=== PATIENT | male | born 1985 | race Caucasian/White ===

== ENCOUNTER 2020-02-23 09:43 | Emergency (ER) | payer OTHER, SELFPAY ==
[2018-03-06 09:10] VITALS: BMI 28.4
[2020-02-23 09:44] VITALS: BP 147/93; PULSE 79; RESP 17; TEMP 36.3; O2SAT 97; BMI 30.4
--- NOTE | 2020-02-23 09:53 | ED.DCSUM_ITS ---
History of Present Illness Informant: Patient Occurred: Yesterday Mechanism/Context: Incised Onset: Yesterday Context: Sudden Onset Timing: Continuous Quality of Pain: Burning Location: Right thumb Current Severity: Mild Maximum Severity: Mild Worsened by: Movement Relieved by: Rest Associated Symptoms: Negative for: Parasthesia, Weakness, Loss of Funtion Narrative: 34-year-old axefj-drro-cnyhynst male presents with a laceration to his right thumb. This occurred yesterday while he was using his pocket knife. He states that he has been unable to get the bleeding to completely resolved. He denies any significant pain. He denies numbness tingling or weakness. He denies any other injuries. He is not on blood thinners. He is unsure about his tetanus. Tetanus Immunization: Unknown Prior similar symptoms: No Recent Illness/Hospitalization: No <Ole Almaguer - Last Filed: 02/23/20 10:28> <Jona Carvalho - Last Filed: 02/23/20 10:37> Chief Complaint: Laceration Past Medical History Prior records reviewed: Yes Past Medical History: None Surgical History: no surgical history Lives: With Family Smoking Status: Current every day smoker Alcohol: Occasional Drugs: None <Ole Almaguer - Last Filed: 02/23/20 10:28> <Jona Carvalho - Last Filed: 02/23/20 10:37> - Allergies and Home Meds Allergies/Adverse Reactions: Allergies No Known Allergies Allergy (Unverified 02/23/20 09:44) Primary Care Physician: Jake Khan DO [Primary Care Provider] - Review of Systems All systems negative except as indicated General: Denies: Chills, Fever, Sweats Eyes: Denies: Visual changes - bilaterally, Diplopia ENT: Denies: Rhinorrhea, Sore throat Cardiovascular: Denies: Chest pain, Palpitations Respiratory: Denies: Dyspnea, Cough, Dyspnea on exertion Gastrointestinal: Denies: Abdominal pain, Nausea, Vomiting, Diarrhea, Melena, Hematochezia Genitourinary: Denies: Dysuria, Hematuria, Frequency Musculoskeletal: Denies: Back pain, Swelling, Extremity Pain Skin: Reports: Abrasions. Denies: Rash, Wounds Neurological: Denies: Headache, Weakness, Numbness <Ole Almaguer - Last Filed: 06/28/20 10:28> Physical Exam Vital Signs/Narrative: Vital Signs Temp Pulse Resp BP Pulse Ox 02/23/20 09:44 97.3 F L 79 17 147/93 H 97 Inital Vital Signs reviewed: Yes Right Finger: - - Patient has an avulsion of skin on his right thumb from the base of the MCP to the mid distal phalanx on the flexor surface. There is no laceration. There is no active bleeding. There is no surrounding swelling or drainage or redness. He has normal active range of motion at his MCP joint and IP joint. His capillary refill and sensation are both normal. His two-point discrimination is normal. There is no injury to his nail. He has normal active range of motion of his other 4 fingers and at his wrist without pain and there are no other injuries noted. General: Well nourished, Well developed Head: Normocephalic, Atraumatic Eyes: Perrl, EOMI ENT: No Trauma, Moist Mucous Membranes Neck: Nontender, Full ROM Cardiovascular: Regular rate, Regular rhythm, No murmurs Respiratory: No distress, CTA bilaterally, Chest nontender Abdomen: Soft, Nontender, Nondistended, Normal bowel sounds Back: Nontender Skin: Normal color, No rash Neurological: Alert, Oriented x3, Cranial nerves II-XII grossly intact, Normal Strength, Normal Sensation Psychological: Normal affect <Ole Almaguer - Last Filed: 02/23/20 10:28> Vital Signs/Narrative: Vital Signs Temp Pulse Resp BP Pulse Ox 02/23/20 09:44 97.3 F L 79 17 147/93 H 97 <Jona Carvalho - Last Filed: 02/23/20 10:37> Diagnostic/Tx/Re-eval - Medical Decision Making Patient's tetanus immunization was updated. The wound was thoroughly cleansed underneath the sink faucet and cleansed with chlorhexidine. Surgicel with a dressing was applied. Patient was instructed on proper wound care and patient was given signs of infection to monitor for. He was advised to follow-up with his primary care for wound check or return for worsening symptoms which we discussed. <Ole Almaguer - Last Filed: 02/23/20 10:28> - Medical Decision Making Patient was seen with me. I did a [id number] examination with the patient. Patient states he was using a knife last night when he accidentally cut his left thumb. Patient states the bleeding has been persistent. Patient denies any paresthesias or weakness. Patient was unsure of his last tetanus but his thought it was more than 10 years ago. Vital signs are stable. Patient is afebrile. Patient is in no acute distress. Skin is warm and dry. There is a 4 cm x 1 cm partial-thickness skin avulsion along the radial aspect of the left thumb. There is minimal bleeding at this time. Sensation was intact to light touch in all digits. Capillary refill was less than 2 seconds in all digits. The wound was cleaned and irrigated. Surgicel dressing was applied. Bleeding was controlled. Patient was instructed to follow-up with his primary care physician in 5 to 7 days. Patient was given a tetanus booster. Patient understood and was agreeable with the plan. All questions were answered. <Jona Carvalho - Last Filed: 02/23/20 10:37> ED Disposition <Ole Almaguer - Last Filed: 02/23/20 10:28> <Jona Carvalho - Last Filed: 02/23/20 10:37> - Plan for ED Patient: Disposition: Home or Assisted Living Diagnosis: Avulsion of skin of right thumb without complication, Tetanus toxoid vaccinat ion administered at current visit Instructions: ED AVULSION LACERATION Referrals: Jake Khan DO [Primary Care Provider] -
[2020-02-23] MEDS: Diphth,Pertuss(Acell),Tet Vac 0.5 ML Vial IM (10:39)
== END 2020-02-23 10:51 | disposition home or self-care (01) ==
LOC: ED 10:37
PROVIDERS: Emergency Provider Physician Assistant Medical; PCP Family Medicine
DX: S61.001A Unspecified open wound of right thumb without damage to nail, initial encounter (principal); W26.0XXA Contact with knife, initial encounter; Y93.9 Activity, unspecified; Y92.9 Unspecified place or not applicable; F17.200 Nicotine dependence, unspecified, uncomplicated
CPT/HCPCS: 90471; 90715; 99282

== ENCOUNTER → 2023-07-10 | Outpatient (CLI) | payer OTHER, SELFPAY ==
[2023-07-10 12:20] LABS: Absolute Lymphocyte Count 2.68 X10^3/uL (0.83-4.51); Absolute Neutrophil Count 3.9 X10^3/uL (2.0-7.7); Basophil# 0.06 X10^3/uL; Basophil% 0.8 % (0-1); Eosinophil# 0.34 X10^3/uL; Eosinophils% 4.5 % (0-5); Hematocrit 47.2 % (40-54); Hemoglobin 15.8 g/dL (13.0-16.5); Lymphocyte # 2.68 X10^3/ul (0.83-4.51); Lymphocyte % 35.4 % (19-41); Mean Corp Hgb Conc 33.5 g/dL (32-36); Mean Corpuscular Hgb 30.6 pg (27.0-32.0); Mean Corpuscular Volume 91.3 fL (80-94); Mean Platelet Vol. 9.5 fl (6.2-12.0); Monocyte# 0.53 X10^3/uL; NRBC Flagged by Analyzer 0 % (0-5); Neutrophil # 3.93 X10^3/uL (2.7-7.7); Neutrophil % 51.9 % (47-70); Platelet Count 267 K/mm3 (150-450); RBC Distribution Width CV 11.9 % (11.6-14.6); RBC Distribution Width SD 39.5 fl (35.1-43.9); Red Blood Count 5.17 M/mm3 (4.6-6.2); White Blood Count 7.6 K/mm3 (4.4-11.0)
[2023-07-10 12:32] LABS: ALB/GLOB Ratio 1.3 RATIO (0.9-2.4); AST(SGOT) 26 U/L (15-37); Alanine Aminotransfer ALT/SGPT 33 U/L (16-61); Albumin, Serum 4.1 g/dL (3.2-5.0); Alkaline Phosphatase 48 U/L (45-117); Anion Gap 4 (5-15); BUN 12 mg/dL (7-18); BUN/Creat Ratio 10.9 RATIO (10-20); Calcium,Total 9.4 mg/dL (8.5-10.1); Chloride 104 mmol/L (98-107); Cholesterol 168 mg/dL (200); EST Glomerular Filtration Rate 81 mL/min (>60); Est Glom Filt Rate - Afr Amer 98 mL/min (>60); Globulin 3.2 g/dL (2.2-4.2); Glucose 87 mg/dL (74-106); High Density Lipoprotein 47 mg/dL; Potassium 4.6 mmol/L (3.5-5.1); Protein, Total 7.3 g/dL (6.4-8.2); Sodium Level 139 mmol/L (136-145); Triglycerides 171 mg/dL; Very Low Density Lipoprotein 34 mg/dL (5-40)
[2023-07-10 13:05] LABS: Hemoglobin A1c 5.4 % (3.8-5.6)
== END | disposition home or self-care (01) ==
LOC: BFHLAB 09:47
PROVIDERS: PCP Family Medicine; Referring Provider Family Medicine; Visit Provider Family Medicine
DX: Z00.00 Encounter for general adult medical examination without abnormal findings (principal)
CPT/HCPCS: 36415; 80053; 80061; 83036; 85025

== ENCOUNTER → 2024-09-04 | Outpatient (CLI) | payer OTHER, SELFPAY ==
--- NOTE | 2024-09-04 09:28 | RAD_ITS ---
HISTORY: chronic pain. TECHNIQUE: XR Spine Lumbar 2 or 3 Views. COMPARISON: None. FINDINGS: VERTEBRAE: Vertebral body heights preserved. Posterior elements appear intact. ALIGNMENT: No significant anterior or posterior subluxation. INTERVERTEBRAL DISCS: Disc spaces maintained. RAD/Lumbar Spine 2 or 3 Views IMPRESSION: No acute fracture or dislocation identified in the lumbar spine. Electronically Signed: Liss Shin MD at 14:44 EST ,
--- NOTE | 2024-09-04 09:30 | RAD_ITS ---
STUDY: X-RAY - PELVIS AND RIGHT HIP REASON FOR EXAM: Male, 39 years old. Chronic pain. TECHNIQUE: 3 views of the pelvis and right hip. COMPARISON: None. FINDINGS: There is a non-specific bowel gas pattern. Normal visualized soft tissue structures. Normal bilateral iliac wings, sacroiliac joints and visualized sacrum. Normal bilateral superior and inferior pubic rami. Normal pubic symphysis. Normal bilateral ischial tuberosities. Normal visualized femoral head. Normal acetabulum. Normal hip joint. RAD/Hip Min 2 Views (Portable) IMPRESSION: Normal x-ray examination of the pelvis and right hip. Electronically Signed: Kelvin Bassett MD at 15:48 EST ,
[2024-09-04 10:06] LABS: Absolute Lymphocyte Count 2.58 X10^3/uL (0.83-4.51); Absolute Neutrophil Count 4.1 X10^3/uL (2.0-7.7); Basophil# 0.09 X10^3/uL; Basophil% 1.2 % (0-1); Eosinophil# 0.26 X10^3/uL; Eosinophils% 3.4 % (0-5); Hematocrit 46.6 % (40-54); Hemoglobin 16.1 g/dL (13.0-16.5); Lymphocyte # 2.58 X10^3/ul (0.83-4.51); Lymphocyte % 33.9 % (19-41); Mean Corp Hgb Conc 34.5 g/dL (32-36); Mean Corpuscular Volume 89.6 fL (80-94); Mean Platelet Vol. 9.1 fl (6.2-12.0); Monocyte# 0.55 X10^3/uL; Monocyte% 7.2 % (0-10); NRBC Flagged by Analyzer 0 % (0-5); Neutrophil % 53.9 % (47-70); Platelet Count 257 K/mm3 (150-450); RBC Distribution Width CV 11.8 % (11.6-14.6); RBC Distribution Width SD 38.1 fl (35.1-43.9); White Blood Count 7.6 K/mm3 (4.4-11.0)
[2024-09-04 11:27] LABS: ALB/GLOB Ratio 1.1 RATIO (0.9-2.4); AST(SGOT) 25 U/L (15-37); Alanine Aminotransfer ALT/SGPT 37 U/L (16-61); Albumin, Serum 4.1 g/dL (3.2-5.0); Alkaline Phosphatase 51 U/L (45-117); Anion Gap 7 (5-15); BUN 12 mg/dL (7-18); BUN/Creat Ratio 11.2 RATIO (10-20); Calcium,Total 9.2 mg/dL (8.5-10.1); Chloride 104 mmol/L (98-107); Cholesterol 176 mg/dL (200); Creatinine, Serum 1.07 mg/dL (0.70-1.30); EST Glomerular Filtration Rate 83 mL/min (>60); Est Glom Filt Rate - Afr Amer 100 mL/min (>60); Globulin 3.6 g/dL (2.2-4.2); Glucose 99 mg/dL (74-106); High Density Lipoprotein 51 mg/dL; Potassium 4.2 mmol/L (3.5-5.1); Protein, Total 7.7 g/dL (6.4-8.2); Sodium Level 136 mmol/L (136-145); Triglycerides 96 mg/dL; Very Low Density Lipoprotein 19 mg/dL (5-40)
== END | disposition home or self-care (01) ==
PROVIDERS: PCP Family Medicine; Visit Provider Internal Medicine
DX: M25.551 Pain in right hip (principal); M54.50 Low back pain, unspecified; G89.29 Other chronic pain; F32.A Depression, unspecified; F41.9 Anxiety disorder, unspecified; Z13.6 Encounter for screening for cardiovascular disorders
CPT/HCPCS: 36415; 72100; 73502; 80053; 80061; 82306; 84443; 85025

== ENCOUNTER → 2025-06-25 | Outpatient (CLI) | payer OTHER, SELFPAY ==
--- NOTE | 2025-06-25 08:53 | MRI_ITS ---
EXAM: MRI/Pelvis (Routine)
== END | disposition home or self-care (01) ==
LOC: MRI 08:49
PROVIDERS: PCP Internal Medicine; Referring Provider Nurse Practitioner Family; Visit Provider Nurse Practitioner Family
DX: M99.05 Segmental and somatic dysfunction of pelvic region (principal); M99.03 Segmental and somatic dysfunction of lumbar region; M99.02 Segmental and somatic dysfunction of thoracic region; M99.01 Segmental and somatic dysfunction of cervical region
CPT/HCPCS: 72195

== ENCOUNTER → 2025-07-18 | Outpatient (CLI) | payer OTHER, SELFPAY ==
[2025-07-18 09:34] LABS: Hematocrit 46.8 % (40-54); Hemoglobin 15.8 g/dL (13.0-16.5); Immature Granulocytes Count 0.020 X10^3/uL (0.0-0.0); Mean Corp Hgb Conc 33.8 g/dL (32-36); Mean Corpuscular Volume 90.7 fL (80-94); Mean Platelet Vol. 9.6 fl (6.2-12.0); NRBC Flagged by Analyzer 0 % (0-5); Platelet Count 251 K/mm3 (150-450); RBC Distribution Width CV 11.9 % (11.6-14.6); RBC Distribution Width SD 39.0 fl (35.1-43.9); Red Blood Count 5.16 M/mm3 (4.6-6.2); White Blood Count 7.2 K/mm3 (4.4-11.0)
[2025-07-18 10:53] LABS: AST(SGOT) 32 U/L (<=37); Alanine Aminotransfer ALT/SGPT 34 U/L (<=46); Albumin, Serum 4.6 g/dL (3.5-5.0); Alkaline Phosphatase 40 U/L (40-129); Anion Gap 12 (5-15); BUN 15 mg/dL (4-19); BUN/Creat Ratio 14.3 RATIO (10-20); Calcium,Total 9.1 mg/dL (7.6-11.0); Carbon Dioxide 23.5 mmol/L (21.0-32.0); Chloride 104 mmol/L (98-108); Cholesterol 175 mg/dL (<=200); Globulin 2.7 g/dL (2.2-4.2); Glucose 87 mg/dL (70-99); Low Density Lipoprotein Calc. 111 mg/dL; PSA,Total- Diagnostic 1.49 ng/mL (0.00-4.00); Potassium 3.8 mmol/L (3.3-5.1); Triglycerides 99 mg/dL; Very Low Density Lipoprotein 20 mg/dL (5-40); Vitamin B12 786 pg/mL (180-914); Vitamin D,25 Hydroxy 35.4 ng/mL (30-100); cholesterol:hdl ratio screen 3.79
[2025-07-24 13:08] LABS: Testosterone, % Free 3.12 % (1.50-4.20); Testosterone, Free 17.22 ng/dL (5.00-21.00)
== END | disposition home or self-care (01) ==
LOC: LAB 08:16
PROVIDERS: PCP Internal Medicine; Referring Provider Nurse Practitioner Family; Visit Provider Nurse Practitioner Family
DX: E29.1 Testicular hypofunction (principal); E66.9 Obesity, unspecified
CPT/HCPCS: 36415; 80053; 80061; 82306; 82607; 83036; 84153; 84402; 84403; 84443; 85025; 86376